=== PATIENT | male | born 1960 | race Caucasian/White ===

== ENCOUNTER 2022-08-29 13:42 | Observation (INO) | payer OTHER ==
[~2022-08-29] VITALS: Ht 182.9 cm; Wt 87.0 kg
[2022-08-29] MEDS ORDERED: DICLOFENAC SOD100 G1 TOP (14:15)
[2022-08-29] MEDS ORDERED: CLONIDINE1 EAC1 TD (14:16)
[2022-08-29] MEDS ORDERED: LOSARTAN POTASS25 MG PO (14:16)
[2022-08-29] MEDS ORDERED: ELIQUIS5 MG PO (14:16)
[2022-08-29] MEDS ORDERED: NIFEDIPINE ER90 M1 PO (14:16)
[2022-08-29] MEDS ORDERED: INDAPAMIDE1.25 MG PO (14:16)
[2022-08-29] MEDS ORDERED: TRIAMCINOLONE A15 G4 TOP (14:16)
[2022-08-29] MEDS ORDERED: EPLERENONE50 MG PO (14:16)
[2022-08-29] MEDS ORDERED: SEMGLEE (Y100 UNIT/1 SUB-Q (16:50)
[2022-08-29] MEDS ORDERED: INSULIN AS100 UNIT/2 SUB-Q (16:52)
[2022-08-29] MEDS ORDERED: FAMOTIDINE10 MG PO ×2 (16:55→17:03)
--- NOTE | 2022-08-29 16:55 | EKG ---
[facility] [address] [place] [address] Signed Normal sinus rhythm Normal ECG No previous ECGs available Confirmed by Addy Fountain MD () on 08/29/2022 4:55:13 PM Electronically Signed By: ADDY FOUNTAIN MD 08/29/22 1655 PATIENT NAME: MEI CERVANTES Electrocardiogram DATE OF : 60 PHYSICIAN: ADDY FOUNTAIN MD REPORT #: [id number] REPORT IS CONFIDENTIAL AND NOT TO BE RELEASED WITHOUT AUTHORIZATION
[2022-08-29] MEDS ORDERED: MIRALAX17 GM PO (16:56)
[2022-08-29] MEDS ORDERED: HYDROXYZINE HCL25 MG PO (17:03)
[2022-08-29] MEDS ORDERED: BENADRYL ITCH28.3 G1 TOP (17:05)
[2022-08-29] MEDS ORDERED: TUMS200 MG PO (17:07)
[2022-08-29] MEDS ORDERED: TYLENOL325 MG PO (17:07)
[2022-08-29] MEDS ORDERED: VENTOLIN HFA18 GM INH (17:08)
[2022-08-29] MEDS ORDERED: METFORMIN HCL500 MG PO (17:09)
== END 2022-08-31 14:02 | disposition home or self-care (01) ==
LOC: ED 13:42 → MS 13:45
PROVIDERS: ADMIT Family Medicine; ATTEND Family Medicine
DX: I63.9 Cerebral infarction, unspecified (principal); I61.1 Nontraumatic intracerebral hemorrhage in hemisphere, cortical; H53.9 Unspecified visual disturbance; U07.1 COVID-19; E87.1 Hypo-osmolality and hyponatremia; E11.65 Type 2 diabetes mellitus with hyperglycemia; Z88.1 Allergy status to other antibiotic agents; Z88.8 Allergy status to other drugs, medicaments and biological substances; Z79.899 Other long term (current) drug therapy; Z79.4 Long term (current) use of insulin
CPT/HCPCS: 36415; 70450; 70496; 70498; 71045; 80053; 83735; 84100; 85025; 85610; 85730; 87502; 93005; 93010; 97162; 97165; 99285-25; A9270; C9803; J1815; J3411; J7030; Q9967; U0003

== ENCOUNTER 2022-09-02 14:52 | Inpatient (IN) | payer OTHER ==
[~2022-09-02] VITALS: Ht 182.9 cm; Wt 77.5 kg
[~2022-09-02 14:52] MED LIST: BENADRYL ITCH28.3 G1 TOP; CLONIDINE1 EAC1 TD; DICLOFENAC SOD100 G1 TOP; ELIQUIS5 MG PO; EPLERENONE50 MG PO; FAMOTIDINE10 MG PO; HYDROXYZINE HCL25 MG PO; INDAPAMIDE1.25 MG PO; INSULIN AS100 UNIT/2 SUB-Q; LOSARTAN POTASS25 MG PO; METFORMIN HCL500 MG PO; MIRALAX17 GM PO; NIFEDIPINE ER90 M1 PO; SEMGLEE (Y100 UNIT/1 SUB-Q; TRIAMCINOLONE A15 G4 TOP; TUMS200 MG PO; TYLENOL325 MG PO; VENTOLIN HFA18 GM INH
--- OUTSIDE RECORDS SUMMARY | 2022-09-02 14:54 | XMS ---
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 Angel VISIT COUNT (12 MO.) 2 [facility] 2 [facility] TOTAL 4 NOTE: Visits indicate total known visits. ED/UCC VISIT TRACKING (12 MO.) 09/02/2022 14:53 [facility] [place] TYPE: Emergency COMPLAINT: - DIZZINESS 08/29/2022 13:44 [facility] TYPE: Emergency COMPLAINT: - ALTERED MENTAL STATUS 07/29/2022 09:52 [facility] OR TYPE: Emergency DIAGNOSES: - Blindness, one eye, unspecified eye 06/01/2022 00:39 [facility] OR TYPE: Emergency DIAGNOSES: - Palpitations - POSS HEART ATTACK - Hyperglycemia, unspecified INPATIENT VISIT TRACKING (12 MO.) 08/29/2022 13:45 [facility] TYPE: Observation COMPLAINT: - CVA WITH HEMORRHAGIC CONVERSION DIAGNOSES: - Nontraumatic intracerebral hemorrhage in hemisphere, cortical - Allergy status to other drugs, medicaments and biological substances - Allergy status to other antibiotic agents - COVID-19 - Hypo-osmolality and hyponatremia - nursing home (current) use of insulin - Other 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
--- NOTE | 2022-09-02 18:20 | NUR ---
this rn to ER to rm 7 to get bedside report from Tammi HAWKINS on pt, tele brought with and placed in ER from CCU - #2 tele placed. 80-90's sr. pt alert and oriented, pleasant, skin wnl, hungry - food ordered from room on med surg. pt smiles equal, has some ataxia to both r/left arms when pointing to nose. in room 109 med surg pt stood from [facility] with 2 person min assist, slightly unsteady - walked to bed for weight and was oriented to room and vitals taken. food provided - pt able to drink and swallow ada reg diet. call light in reach - denies pain or needs has water, and urinal in reach.
--- NOTE | 2022-09-02 19:15 | NUR ---
RECEIVED BEDSIDE REPORT FROM OFFGOING SHIFT
--- NOTE | 2022-09-02 21:50 | NUR ---
IN PT ROOM FOR MEDICATION ADMINISTRATION, VS. PT VS STABLE, MEDICATION COMPLIANT, NO COMPLAINT OF PAIN OR DISCOMFORT, CALL LIGHT IN REACH.
--- NOTE | 2022-09-02 22:59 | NUR ---
IN PT ROOM FOR ROUNDING. PT RESTING ON BACK, EYES CLOSED, BREATHING EVEN AND UNLABORED. PT HAS NO INDICATION OF PAIN OR DISCOMFORT, CALL LIGHT IN REACH.
--- NOTE | 2022-09-03 00:13 | NUR ---
in pt room for rounding pt laying on back eyes closed, breathing even and unlabored. pt has no complaint of pain or discomfort, call light in reach
--- NOTE | 2022-09-03 01:52 | NUR ---
IN PT ROOM FOR ROUNDING. PT RESTING ON BACK, EYES CLOSED, BREATHING EVEN AND UNLABORED. VS TAKEN, NO COMPLAINT OF PAIN OR DISCOMFORT, CALL LIGHT IN REACH.
--- NOTE | 2022-09-03 03:47 | NUR ---
IN PT ROOM FOR ROUNDING. PT RESTING ON BACK, HOB ELEVATED, EYES CLOSED, BREATHING EVEN AND UNLABORED, NO INDICATION OF PAIN OR DISCOMFORT, CALL LIGHT IN REACH
--- NOTE | 2022-09-03 05:47 | NUR ---
IN PT ROOM FOR VS AND I&O'S. PT RESTING ON BACK, VS STABLE, NO COMPLAINT OF PAIN OR DISCOMFORT, CALL LIGHT IN REACH
--- NOTE | 2022-09-03 07:12 | NUR ---
REPORT RECEIVED FROM LESLIE HAWKINS, ALL QUESTIONS ANSWERED. PT AWAKE IN BED, DENIES NEEDS AT THIS TIME. CALL LIGHT IN REACH.
--- NOTE | 2022-09-03 07:32 | EKG ---
[facility] [address] [facility] [place], [place] [address] Signed Normal sinus rhythm Normal ECG When compared with ECG of 29-AUG-2022 14:13, No significant change was found Confirmed by CHAUNCEY GALLARDO MD ([id number]) on 09/03/2022 7:32:38 AM Electronically Signed By: CHAUNCEY GALLARDO MD 09/03/22 0732 PATIENT NAME: MEI CERVANTES Electrocardiogram DATE OF : 60 PHYSICIAN: CHAUNCEY GALLARDO MD REPORT #: [id number] REPORT IS CONFIDENTIAL AND NOT TO BE RELEASED WITHOUT AUTHORIZATION
--- NOTE | 2022-09-03 08:41 | NUR ---
MORNING ASSESSMENT COMPLETE. PT LYING AWAKE IN BED. SOME ATAXIA NOTED TO LEFT UPPER EXTREMITY. EQUAL DITCHER STRENGTH. PT DENIES PAIN OR NEEDS AT THIS TIME. CALL LIGHT IN REACH.
--- NOTE | 2022-09-03 11:20 | NUR ---
PHYSICAL THERAPY GOT PATIENT UP OUT OF BED THIS MORNING. PATIENT IS SITTING IN HIS CHAIR.
--- NOTE | 2022-09-03 11:23 | NUR ---
AFTER I WAS DONE DOING HIS MORNING VITALS. CHANGED THE BED LINENS. ALSO PATIENT BRUSHED HIS TEETH AND WASHED HIS FACE. PATIENT IS SITTING IN HIS CHAIR.
--- NOTE | 2022-09-03 19:40 | NUR ---
RECEIVED REPORT FROM DAY SHIFT RN. PATIENT IS RESTING IN BED WATCHING TV. PATIENT DENIES ANY NEEDS. CALL LIGHT IN REACH.
--- NOTE | 2022-09-03 20:56 | NUR ---
PATIENT ASSESMENT COMPLETED. VITALS TAKEN AND RECORDED. PM MEDS PER ORDER. PATIENT DENIES ANY PAIN OR NAUSEA. IV INFUSING PER ORDER. PATIENTS IV FLUSHED. PATIENT PROVIDED WITH FRESH ICE WATER. PATIENT REPORTS RIGHT PERIPHREAL FIELD LOSS OF VISION, WHEN LEFT EYE IS COVERED RIGHT EYE VISION IMPROVES. PATIENT REPORTS NUMBNESS IN HIS FEET. PATIENT STATED "IT COMES AND GOES". PATIENT DENIES ANY FURTHER NEEDS. CALL LIGHT IN REACH.
--- NOTE | 2022-09-03 22:21 | NUR ---
PATIENT IS RESTING IN BED WATCHING TV. PATIENT DENIES ANY NEEDS. CALL LIGHT IN REACH. IV INFUSING PER ORDER.
--- NOTE | 2022-09-04 00:08 | NUR ---
PATIENT IS RESTING IN BED WITH EYES CLOSED, RR 15. CALL LIGHT IN REACH. IV INFUSING PER ORDER. PATIENT ON TLE #2, HR 82. URINAL EMPTIED. CALL LIGHT IN REACH.
--- NOTE | 2022-09-04 02:34 | NUR ---
PATIENT IS RESTING IN BED WITH EYES CLSOED, RR 16. CALL LIGHT IN REACH. IV INFUSING PER ORDER. PATIENT IS ON TELE #2, HR 81. URINAL EMPTIED. CALL LIGHT IN REACH.
--- NOTE | 2022-09-04 03:40 | NUR ---
PATIENT REPORTS 7/10 PAIN IN HIS LEFT WRIST. PATIENT GIVEN PRN TYLENOL. PATIENT ASSISTED IN REPOSITION. PATIENT DENIES ANY FURTHER NEEDS. CALL LIGHT IN REACH. BED ALARM ON FOR SAFETY.
--- NOTE | 2022-09-04 04:07 | NUR ---
PATIENT IS RESTING IN BED WITH EYES CLSOED, RR 16. CALL LIGHT IN REACH. IV INFUSING PER ORDER. CALL LIGHT IN REACH.
--- NOTE | 2022-09-04 06:03 | NUR ---
PATIENTS VITALS TAKEN AND RECORDED. INTAKE AND OUTPUT RECORDED. IV INFUSING PER ORDER. PATIENT PROVIDED WITH FRESH WATER. PATIENT DENIES ANY FURTHER NEEDS. CALL LIGHT IN REACH.
--- NOTE | 2022-09-04 07:48 | NUR ---
REPORT RECEIVED FROM NASREEN HAWKINS, ALL QUESTIONS ANSWERED. PT RESTING AWAKE IN BED. C/O LEFT WRIST PAIN, WILL MEDICATE WHEN APPROPRIATE. PT AGREEABLE AT THIS TIME. CALL LIGHT IN REACH.
--- NOTE | 2022-09-04 09:36 | NUR ---
MORNING ASSESSMENT COMPLETE. PT AWAKE IN BED EATING BREAKFAST. ALERT AND ORIENTED. EQUAL REBAR BENDER STRENGTH. NO DRIFT NOTED. PT SHOW RIGHT SIDED PERIPHERAL VISION LOSS. STATES THAT HAS BEEN PRESENT SINCE PREVIOUS STROKE. PT C/O 02/16 LEFT WRIST PAIN, GIVEN PRN TYLENOL, SEE EMAR. PT DENIES FURTHER NEEDS AT THIS TIME. CALL LIGHT IN REACH.
--- NOTE | 2022-09-04 10:00 | NUR ---
PT WALKING WITH PHYSICAL THERAPY IN [place].
--- NOTE | 2022-09-04 14:29 | NUR ---
ASSISTED PT FROM RECLINER TO BED WITH FWW. STATES PAIN TO LEFT WRIST HAS IMPROVED. DENIES FURTHER NEEDS AT THIS TIME. CALL LIGHT IN REACH.
--- NOTE | 2022-09-04 15:35 | NUR ---
PT AWAKE, DENIES NEEDS AT THIS TIME. CALL LIGHT IN REACH.
--- NOTE | 2022-09-04 17:36 | NUR ---
PT AWAKE IN BED. DENIES NEEDS AT THIS TIME. CALL LIGHT IN REACH.
--- NOTE | 2022-09-04 19:23 | NUR ---
RECEIVED REPORT FROM DAY SHIFT RN. PATIENT IS RESTING IN BED WATCHING TV. PATIENT DENIES ANY NEEDS. CALL LIGHT IN REACH.
--- NOTE | 2022-09-04 20:57 | NUR ---
PATIENT ASSESMENT COMPLETED. VITALS TAKEN AND RECORDED. INTAKE AND OUTPUT RECORDED. PATIENTS PM MEDS GIVEN PER ORDER. PATIENT REPORTS 7/10 PAIN IN HIS LEFT WRIST, PRN MEDS GIVEN PER ORDER. PATIENT GIVEN PRN SLEEP AID PER ORDER. PATIENTS IV FLUSHED AND SL PER ORDER. PATIENT CONTINUES TO REPORT NUMBNESS IN BILAT LOW EXT. PATIENT CONTINUES TO HAVE RIGHT VISUAL FIELD DISTURBANCES. PATIENT DENIES ANY NEEDS. CALL LIGHT IN REACH. PATIENT IS AAOX4. CALL LIGHT IN REACH.
--- NOTE | 2022-09-04 22:27 | NUR ---
PATIENT IS RESTING IN BED WITH EYES CLOSED, RR 16. CALL LIGHT IN REACH.
--- NOTE | 2022-09-05 00:11 | NUR ---
PATIENT IS RESTING IN BED WITH EYES CLSOED, RR 17. CALL LIGHT IN REACH. URINAL EMPTIED.
--- NOTE | 2022-09-05 02:05 | NUR ---
PATIENT ASSISTED TO STAND AT THE BEDSIDE A 1PA W/FWW. ATTEND AND PANTS CHANGED. PATIENT IS BACK IN BED RESTING. FRESH ICE WATER PROVIDED. PATIENT DENIES ANY FURTHER NEEDS. CALL LIGHT IN REACH.
--- NOTE | 2022-09-05 03:57 | NUR ---
PATIENT UP USING URINAL. PATIENT ABLE TO VOID. PATIENT IS BACK IN BED RESTING. PATIENT DENIES ANY NEEDS. CALL LIGHT IN REACH.
--- NOTE | 2022-09-05 05:52 | NUR ---
PATIENT IS RESTING IN BED. PATIENTS VITALS TAKEN AND RECORDED. PATIENTS INTKAE AND OUTPUT RECORDED. IV FLUSHED AND SL PER ORDER. PATIENT DENIES ANY PAIN. PATIENT PROVIDED WITH FRESH ICE WATER. PATIENT DENIES ANY FURTHED NEEDS. CALL LIGHT IN REACH.
--- NOTE | 2022-09-05 06:15 | NUR ---
PATIENT OFF FLOOR TO MRI
--- NOTE | 2022-09-05 06:52 | NUR ---
PATIENT IS BACK FROM MRI AND IS RESTING IN BED. FRESH ICE WATER PROVIDED. PATIENT DENIES ANY NEEDS. CALL LIGHT IN REACH.
--- NOTE | 2022-09-05 07:16 | NUR ---
RECEIVED REPORT FROM PROCESS DESCRIPTION WRITER NURSE NASREEN.
--- NOTE | 2022-09-05 08:02 | NUR ---
PATIENT RESTING IN BED, GIVEN WARM BLANKET. IV LEFT WRIST FLUSHED WITH 10ML NS. SITE WNL, NO DISCOMFORT. PT DENIES ANY CONCERNS AT THIS TIME.
--- NOTE | 2022-09-05 08:20 | NUR ---
PATIENT EATING BREAKFAST IN BED. PATIENT GIVEN MORNING MEDICATIONS AND 1 UNIT OF INSULIN NEEDED THIS MORNING. DR. GALLARDO IN ROOM WITH PATIENT, ADVISED OF DISCHARGE TODAY.
[2022-09-05] MEDS ORDERED: DULCOLAX10 MG PR (08:52)
[2022-09-05] MEDS ORDERED: GLUCAGEN1 M1 INJ (08:55)
[2022-09-05] MEDS ORDERED: LIDOCAINE5 GM TOP (08:56)
--- NOTE | 2022-09-05 09:04 | NUR ---
MED REC COMPLETE
--- NOTE | 2022-09-05 09:18 | NUR ---
PATIENT WOULD LIKE TO RETURN TO [facility] WHEN MEDICALLY STABLE. CHART COPIES SENT TO [facility] TO REVIEW. PATIENT PLANS TO RETURN TO HIS HOMES AFTER REHAB. AT [facility].
--- NOTE | 2022-09-05 10:12 | NUR ---
PATIENT RESTING IN BED WATCHING TV. PT WAS MOVED UP IN BED AND COVERED WITH A WARM BLANKET AND SHEETS. PT HAS WATER AT BEDSIDE, TV REMOTE AND CALL LIGHT. PT DENIES CARES AT THIS TIME. PT CURIOUS IF HE WOULD STILL BE DISCHARGED TODAY. ADVISED PATIENT THAT WE ARE WAITING ON [facility] AND THEN WILL START THE PROCESS TO GET HIM THERE TODAY.
--- NOTE | 2022-09-05 12:59 | NUR ---
PATIENT DISCHARGED TO [facility]IA [facility]. IV HAS BEEN REMOVED, PT HAS ALL BELONGINGS. PT HAS NO QUESTIONS OR CONCERNS.
== END 2022-09-05 12:55 | disposition home or self-care (01) | DRG 64 ==
LOC: ED 14:52 → MS 17:14
PROVIDERS: ADMIT Internal Medicine; ATTEND Internal Medicine
DX: I63.533 Cerebral infarction due to unspecified occlusion or stenosis of bilateral posterior cerebral arteries (principal); I61.4 Nontraumatic intracerebral hemorrhage in cerebellum; U07.1 COVID-19; E87.1 Hypo-osmolality and hyponatremia; I10 Essential (primary) hypertension; R27.0 Ataxia, unspecified; I48.0 Paroxysmal atrial fibrillation; H55.00 Unspecified nystagmus; E11.65 Type 2 diabetes mellitus with hyperglycemia; Z96.641 Presence of right artificial hip joint; Z72.89 Other problems related to lifestyle; Z88.1 Allergy status to other antibiotic agents; Z88.8 Allergy status to other drugs, medicaments and biological substances; Z79.4 Long term (current) use of insulin; Z79.01 Long term (current) use of anticoagulants; Z79.899 Other long term (current) drug therapy
CPT/HCPCS: 36415; 70450; 70496; 70498; 70551; 71045; 80048; 80053; 83735; 84484; 85025; 85610; 85730; 93005; 93010; 94760; 97110; 97116; 97162; A9270; C9803; J1815; J7030; Q9967; U0003